=== PATIENT | female | born 1995 | race Native Hawaiian/Other Pacific Islander ===

== ENCOUNTER → 2016-10-05 | Outpatient (CLI) | payer OTHER ==
[~2016-10-05] MED LIST: IBUP600 PO; TAMS0.4C67 PO
[2016-10-05 16:19] LABS: HEMATOCRIT 36.8 % (35.0-46.0); MEAN CELL VOLUME 93.8 FL (80.0-100.0); MEAN CORPUSCULAR HEMOGLOBIN 32.4 PG (27.0-34.0); MEAN CORPUSCULAR HGB CONC 34.6 % (32.0-36.0); PLATELET COUNT 229 TH/MM3 (150-450); RED BLOOD COUNT 3.92 MIL/MM3 (4.00-5.30); RED CELL DISTRIBUTION WIDTH 12.4 % (11.6-17.2); REVIEW FLAG FINAL; WHITE BLOOD COUNT 5.6 TH/MM3 (4.0-11.0)
[2016-10-05 16:32] LABS: ANION GAP 8 MEQ/L (5-15); AST (GOT) 16 U/L (15-37); BICARBONATE 24.3 MEQ/L (21.0-32.0); BLOOD UREA NITROGEN 15 MG/DL (7-18); CHLORIDE 105 MEQ/L (98-107); GLOMERULAR FILTRATION RATE 104 ML/MIN (>89); GLUCOSE,FASTING 78 MG/DL (74-99); POTASSIUM 3.8 MEQ/L (3.5-5.1); SODIUM (NA) 137 MEQ/L (136-145)
[2016-10-05 16:42] LABS: ALKALINE PHOSPHATASE 54 U/L (45-117); ALT (GPT) 14 U/L (10-53); FREE T4 1.06 NG/DL (0.76-1.46); HDL CHOLESTEROL 61.3 MG/DL (40.0-60.0); LDL CHOLESTEROL 94 MG/DL (0-99); TOTAL BILIRUBIN ADULT 0.3 MG/DL (0.2-1.0)
== END ==
LOC: PLAB 13:18
PROVIDERS: ATTEND Family Medicine
DX: K59.09 Other constipation (principal); R14.0 Abdominal distension (gaseous); H81.393 Other peripheral vertigo, bilateral; F41.1 Generalized anxiety disorder; R70.0 Elevated erythrocyte sedimentation rate; R11.0 Nausea
CPT/HCPCS: 80053; 80061; 83516; 84439; 84443; 85027

== ENCOUNTER 2017-03-14 20:45 | Emergency (ER) | payer OTHER ==
[~2017-03-14] VITALS: Ht 152.4 cm; Wt 43.2 kg
[2017-03-14 20:48] VITALS: BP 112/77; PULSE 93; RESP 16; TEMP 98.1
[2017-03-14] MEDS ORDERED: IBUP800T23 PO (21:35)
--- NOTE | 2017-03-14 21:37 | PD ---
HPI Chief Complaint: Edema Time Seen by Provider: 21:26 Travel History International Travel<30 days: No Contact w/Intl Traveler<30days: No Traveled to known affect area: No History of Present Illness HPI 21-year-old female presents emergency department for evaluation of mild bilateral knee swelling times one day. Patient denies injury. She reports only minimal pain. She reports she noticed mild knee swelling today. She denies fever, chills or recent infection. She denies any other joint involvement. Symptom severity is mild. No alleviating factors. Duration one day. PFSH Past Medical History Medical History: Denies Significant Hx Diminished Hearing: No Gastrointestinal Disorders: Yes (IBS) Immunizations Current: Yes Tetanus Vaccination: > 5 Years Influenza Vaccination: No ?: Not LMP: 03-11-17 Past Surgical History Surgical History: No Previous Surgery Social History Alcohol Use: No Tobacco Use: No Substance Use: No Allergies-Medications (Allergen,Severity, Reaction): Coded Allergies: penicillin G (Unverified Allergy, Mild, 03/14/17) Reported Meds & Prescriptions Reported Meds & Active Scripts Active Ibuprofen 800 Mg Tab 800 Mg PO Q6HR PRN Review of Systems Except as stated in HPI: all other systems reviewed are Neg General / Constitutional: No: Fever Eyes: No: Visual changes HENT: No: Headaches Cardiovascular: No: Chest Pain or Discomfort Respiratory: No: Shortness of Breath Gastrointestinal: No: Abdominal Pain Genitourinary: No: Dysuria Skin: No Rash Physical Exam Narrative GENERAL: Well-nourished, well-developed patient. SKIN: Focused skin assessment warm/dry. No rash. HEAD: Normocephalic. EYES: No scleral icterus. No injection or drainage. NECK: Supple, trachea midline. No JVD or lymphadenopathy. CARDIOVASCULAR: Regular rate and rhythm without murmurs, gallops, or rubs. RESPIRATORY: Breath sounds equal bilaterally. No accessory muscle use. GASTROINTESTINAL: Abdomen soft, non-tender, nondistended. MUSCULOSKELETAL: No cyanosis. Mild bilateral knee effusions. Both joints are without warmth or erythema. The knees are nontender. She has no calf tenderness. No pedal edema. 2+ distal pulses. Data Data Last Documented VS Vital Signs Date Time Temp Pulse Resp B/P (MAP) Pulse Ox O2 Delivery O2 Flow Rate FiO2 03/14/17 20:48 98.1 93 16 112/77 (89) Orders Orders Splint Or Brace Apply/Monitor (03/14/17 21:37) MDM Medical Decision Making Medical Screen Exam Complete: Yes Emergency Medical Condition: Yes Differential Diagnosis Knee effusion, osteo-arthritis, rheumatoid arthritis, gouty arthritis, knee strain versus sprain Narrative Course 21-year-old female with mild bilateral knee effusions times one day. Patient denies any injury. Patient denies fever or chills. Patient denies any recent infection. Her physical exam is reassuring. She has no evidence of septic joint. Patient will be treated for mild effusion to the stress and NSAIDs instructed to follow up PCP. Patient verbalizes understanding and agrees to plan Diagnosis Primary Impression: Bilateral knee effusions Referrals: [facility] Departure Forms: Tests/Procedures, Work Release Enter return to work date: Mar 16, 2017 Additional Instructions: Review the Bert wrap's for support. Take the Motrin as directed. Follow-up the primary doctor. Return to the emergency department if he developed new or worsening symptoms. Scripts Ibuprofen (Ibuprofen) 800 Mg Tab 800 MG PO Q6HR Y for PAIN, #30 TAB 0 Refills Prov: Renee Gil 03/14/17 Disposition: 01 DISCHARGE HOME Condition: Stable Renee Gil Mar 14, 2017 21:37
== END 2017-03-14 21:59 | disposition home or self-care (01) ==
LOC: PHEFT 20:45
DX: M25.462 Effusion, left knee (principal); M25.461 Effusion, right knee; K58.9 Irritable bowel syndrome, unspecified
CPT/HCPCS: 99283

== ENCOUNTER 2017-07-08 09:47 | Emergency (ER) | payer SELFPAY ==
[~2017-07-08] VITALS: Ht 152.4 cm; Wt 48.5 kg
[~2017-07-08 09:47] MED LIST changes: +IBUP1TAB7 PO; -IBUP600 PO; -TAMS0.4C67 PO
[2017-07-08 10:10] VITALS: BP 108/62; PULSE 88; RESP 15; TEMP 97.8; O2SAT 99
--- NOTE | 2017-07-08 11:33 | PD ---
HPI Chief Complaint: Cold / Flu Symptoms Time Seen by Provider: 10:54 Travel History International Travel<30 days: No Contact w/Intl Traveler<30days: No Traveled to known affect area: No History of Present Illness HPI This is a 21-year-old female here with left rib pain times one day. She reports pain is reproduced by palpation of the ribs and deep inspiration. She did have a upper respiratory infection with cough several days prior. Symptom severity is mild to moderate. Reproduced by palpation of the ribs and deep inspiration. No alleviating factors. She denies chest pain, palpitations, shortness of breath. PFSH Past Medical History Medical History: Denies Significant Hx Diminished Hearing: No Gastrointestinal Disorders: Yes (IBS) Immunizations Current: Yes ?: Not LMP: 06/18/2017 Social History Alcohol Use: No Tobacco Use: No Substance Use: No Allergies-Medications (Allergen,Severity, Reaction): Coded Allergies: penicillin G (Unverified Allergy, Mild, 07/08/17) Reported Meds & Prescriptions Reported Meds & Active Scripts Active No Active Prescriptions or Reported Medications Review of Systems Except as stated in HPI: all other systems reviewed are Neg General / Constitutional: No: Fever Physical Exam Narrative GENERAL: Alert and well-appearing 21-year-old female SKIN: Warm and dry. HEAD: Normocephalic. EYES: No injection or drainage. NECK: Supple, trachea midline. CARDIOVASCULAR: Regular rate and rhythm without murmurs, gallops, or rubs. Chest wall: + Tenderness to palpation of the left anterior chest wall. No crepitus. RESPIRATORY: Breath sounds equal bilaterally. No accessory muscle use. Equal chest rise. GASTROINTESTINAL: Abdomen soft, non-tender, nondistended. MUSCULOSKELETAL: No cyanosis, or edema. BACK: Nontender without obvious deformity. No CVA tenderness. Data Data Last Documented VS Vital Signs Date Time Temp Pulse Resp B/P (MAP) Pulse Ox O2 Delivery O2 Flow Rate FiO2 07/08/17 10:10 97.8 88 15 108/62 (77) 99 Orders Orders Chest, Single Ap (07/08/17 ) [facility] Medical Decision Making Medical Screen Exam Complete: Yes Emergency Medical Condition: Yes Differential Diagnosis Chest wall strain, costochondritis, rib fracture, pneumothorax Narrative Course 21-year-old female here with nontraumatic left chest wall/rib pain times one day. Patient had recent URI. She was coughing frequently. She has reproducible left anterior rib pain. No palpable fractures. Breath sounds equal bilaterally. Equal chest rise. Chest x-ray: No acute disease X-ray findings discussed with patient and family. She'll be treated for chest wall strain. Return precautions discussed. Patient verbalizes understanding and agrees to plan Diagnosis Primary Impression: Strain of chest wall Qualified Codes: S29.011A - Strain of muscle and tendon of front wall of thorax, initial encounter Referrals: Primary Care Physician Additional Instructions: Take rpro-yed-vmbddyf ibuprofen 600 mg every 6 hours as needed for pain. Follow-up with her primary doctor. Return if he developed new or worsening symptoms. Scripts No Active Prescriptions or Reported Meds Disposition: 01 DISCHARGE HOME Condition: Stable Renee Gil Jul 08, 2017 11:33
--- NOTE | 2017-07-08 11:44 | RADRPT ---
EXAM DATE/TIME: 07/08/2017 11:16 [place] COMPARISON: No previous studies available for comparison. INDICATIONS : Left side chest pain with cough. MEDICAL HISTORY : None. SURGICAL HISTORY : None. ENCOUNTER: Initial ACUITY: 2 days PAIN SCORE: 7/10 LOCATION: Bilateral chest FINDINGS: Single AP view of the chest. The lungs are clear. Cardiomediastinal silhouette within normal limits. No evidence of pleural effusion or pneumothorax. CONCLUSION: No acute cardiopulmonary disease identified. Eagle Mcdonald MD on July 08, 2017 at 11:41 Board Certified Radiologist. This report was verified electronically.
== END 2017-07-08 11:57 | disposition home or self-care (01) ==
LOC: PHEFT 09:47
DX: S29.011A Strain of muscle and tendon of front wall of thorax, initial encounter (principal); R05 Cough; X58.XXXA Exposure to other specified factors, initial encounter
CPT/HCPCS: 71045; 99283

== ENCOUNTER 2017-08-10 15:30 | Emergency (ER) | payer SELFPAY ==
[~2017-08-10] VITALS: Ht 152.4 cm; Wt 41.6 kg
[2017-08-10 15:53] VITALS: BP 118/67; PULSE 122; RESP 18; TEMP 98.9; O2SAT 98
--- NOTE | 2017-08-10 17:21 | PD ---
HPI Chief Complaint: ENT Complaint Time Seen by Provider: 16:29 Travel History International Travel<30 days: No Contact w/Intl Traveler<30days: No Traveled to known affect area: No History of Present Illness HPI 21-year-old female that presents to the ED for evaluation of bilateral ear pain , headache, sore throat. Per patient she's had this for 2 days. No sick contacts. Congestion and mild cough. No history of asthma. No other medical issues. No recent travel. Allergy to penicillin. No urinary or bowel movement issues. Has not seen anybody for this. Per patient she is able to swallow but feels like she is given a gag and she tries not to. She has no taken anything else for this. No other medical issues. PFSH Past Medical History Medical History: Denies Significant Hx Diminished Hearing: No Gastrointestinal Disorders: Yes (IBS) Immunizations Current: Yes ?: Not LMP: 07/23/17 Past Surgical History Surgical History: No Previous Surgery Social History Alcohol Use: No Tobacco Use: No Substance Use: No Allergies-Medications (Allergen,Severity, Reaction): Coded Allergies: penicillin G (Unverified Allergy, Mild, 08/10/17) Reported Meds & Prescriptions Reported Meds & Active Scripts Active Magic Mouthwash Adult Liq (Multi-Ingredient Mouthwash/Gargle) 120 Ml Susp 5 Ml SWISH-SWAL ACHS Each 5mL contains: Nystatin 200,000units, Diphenhydramine 4.25mg, Viscous Lidocaine 10mg, Lebron syrup 0.8 mL Prednisone 20 Mg Tab 20 Mg PO BID 3 Days Azithromycin 250 Mg Tab 250 Mg PO DIRECTED Take 2 tabs (500 mg) on day 1 then 1 tab daily x 4 days. Review of Systems Except as stated in HPI: all other systems reviewed are Neg Physical Exam Narrative GENERAL: Well-nourished, well-developed patient in no apparent distress. SKIN: Warm and dry. HEAD: Atraumatic. Normocephalic. EYES: Pupils equal and round reactive to light and accommodation. No scleral icterus. No injection or drainage. ENT: No nasal bleeding or discharge. Mucous membranes pink and moist. TMs are red and bulging bilaterally but more noticeable on the left.. No mastoid tenderness. Ear canals are intact bilaterally. No lymphadenopathy. Nostril mucosa is red and moist with clear mucus noted. No sinus tenderness to palpation noted. Tonsils are not enlarged or swollen. No ulvua Deviation. Tongue is midline. NECK: Trachea midline. No JVD. No meningeal signs noted CARDIOVASCULAR: Regular rate and rhythm. RESPIRATORY: No accessory muscle use. Clear to auscultation. Breath sounds equal bilaterally. GASTROINTESTINAL: Abdomen soft, non-tender, nondistended. Hepatic and splenic margins not palpable. MUSCULOSKELETAL: Extremities without clubbing, cyanosis, or edema. No obvious deformities. NEUROLOGICAL: Awake and alert. No obvious cranial nerve deficits. Motor grossly within normal limits. Five out of 5 muscle strength in the arms and legs. Normal speech. PSYCHIATRIC: Appropriate mood and affect; insight and judgment normal. Data Data Last Documented VS Vital Signs Date Time Temp Pulse Resp B/P (MAP) Pulse Ox O2 Delivery O2 Flow Rate FiO2 08/10/17 19:51 113 08/10/17 19:40 16 08/10/17 15:53 98.9 118/67 (84) 98 Orders Orders Influenzae A/B Antigen (08/10/17 16:39) Electrocardiogram (08/10/17 ) Basic Metabolic Panel (Bmp) (08/10/17 18:12) Complete Blood Count With Diff (08/10/17 18:12) Iv Access Insert/Monitor (08/10/17 18:12) Sodium Chlor 0.9% 1000 Ml Inj (Ns 1000 M (08/10/17 18:12) Ketorolac Inj (Toradol Inj) (08/10/17 18:15) Lactic Acid Sepsis Protocol (08/10/17 18:16) Azithromycin Inj (Zithromax Inj) (08/10/17 18:30) Sodium Chlor 0.9% 1000 Ml Inj (Ns 1000 M (08/10/17 19:00) Thyroid Stimulating Hormone (08/10/17 19:17) Sodium Chlor 0.9% 1000 Ml Inj (Ns 1000 M (08/10/17 19:30) Lactic Acid Sepsis Protocol (08/10/17 19:23) Ed Discharge Order (08/10/17 19:51) Labs Laboratory Tests Test 08/10/17 18:22 08/10/17 19:12 White Blood Count 7.4 TH/MM3 Red Blood Count 3.99 MIL/MM3 Hemoglobin 12.8 GM/DL Hematocrit 37.2 % Mean Corpuscular Volume 93.3 FL Mean Corpuscular Hemoglobin 32.2 PG Mean Corpuscular Hemoglobin Concent 34.5 % Red Cell Distribution Width 12.3 % Platelet Count 218 TH/MM3 Mean Platelet Volume 8.7 FL Neutrophils (%) (Auto) 72.9 % Lymphocytes (%) (Auto) 12.1 % Monocytes (%) (Auto) 11.3 % Eosinophils (%) (Auto) 3.0 % Basophils (%) (Auto) 0.7 % Neutrophils # (Auto) 5.4 TH/MM3 Lymphocytes # (Auto) 0.9 TH/MM3 Monocytes # (Auto) 0.8 TH/MM3 Eosinophils # (Auto) 0.2 TH/MM3 Basophils # (Auto) 0.1 TH/MM3 CBC Comment DIFF FINAL Differential Comment Blood Urea Nitrogen 10 MG/DL Creatinine 0.60 MG/DL Random Glucose 76 MG/DL Calcium Level 8.7 MG/DL Sodium Level 138 MEQ/L Potassium Level 3.4 MEQ/L Chloride Level 105 MEQ/L Carbon Dioxide Level 22.7 MEQ/L Anion Gap 10 MEQ/L Estimat Glomerular Filtration Rate 125 ML/MIN Thyroid Stimulating Hormone 3rd Gen 0.269 uIU/ML Lactic Acid Level 1.1 mmol/L MDM Medical Decision Making Medical Screen Exam Complete: Yes Emergency Medical Condition: Yes Medical Record Reviewed: Yes Interpretation(s) CBC & BMP Diagram 08/10/17 18:22 Calcium Level 8.7 EKG shows sinus tachy in the 130s. lactic acid WNL Differential Diagnosis Influenza versus pharyngitis versus otitis media versus otitis externa versus sinusitis Narrative Course 21-year-old female that presents to the ED for evaluation of cold like symptoms. Patient was properly examined and was found to have signs and symptoms consistent appears to be possible influenza. Labs were ordered. Influenza test was negative. Patient was reassured. Patient still tachycardic in the 120s and 130s. Within EKG and it shows sinus tach in the 130s. Likely from dehydration. IV was established and lab work was ordered. IV and labs were essentially unremarkable. Patient was given 1.5 L with improvement of tachycardia with improvement to the 116. Patient was given Tylenol for pain and the first dose of azithromycin. Patient was given prescription for azithromycin, Magic mouthwash and prednisone. Told to follow closely with PCP. See ED worsening symptoms. All questions were answered to the best of my ability. Diagnosis Primary Impression: Pharyngitis, acute Qualified Codes: J02.9 - Acute pharyngitis, unspecified Patient Instructions: General Instructions Departure Forms: Tests/Procedures, Work Release Enter return to work date: Aug 12, 2017 Additional Instructions: Motrin and Tylenol for pain and fever. You can use gxfc-jmb-gvfoilt antihistamine as well as well as Mucinex as needed for runny nose and congestion. Cough drops for cough as needed. Drink plenty of fluids. Follow-up with PCP. See ED for worsening symptoms. Med/Other Pt SpecificInfo: Prescription(s) given Scripts Gopwenwp-Npxanrorenhlicy-Spygtpwlz Liq (Magic Mouthwash Adult Liq) 120 Ml Susp 5 ML SWISH-SWAL ACHS for Mouth sores, #120 ML 0 Refills Each 5mL contains: Nystatin 200,000units, Diphenhydramine 4.25mg, Viscous Lidocaine 10mg, Lebron syrup 0.8 mL Prov: Blayne Gregg MD 08/10/17 Prednisone (Prednisone) 20 Mg Tab 20 MG PO BID for 3 Days, #6 TAB 0 Refills Prov: Blayne Gregg MD 08/10/17 Azithromycin (Azithromycin) 250 Mg Tab 250 MG PO DIRECTED for Infection, #6 TAB 0 Refills Take 2 tabs (500 mg) on day 1 then 1 tab daily x 4 days. Prov: Blayne Gregg MD 08/10/17 Disposition: 01 DISCHARGE HOME Condition: Stable Magno Vasquez Aug 10, 2017 17:21
[2017-08-10] MEDS ORDERED: MAGICADU2 SWISH-SWAL (18:08)
[2017-08-10] MEDS ORDERED: PRED20 PO (18:08)
[2017-08-10] MEDS ORDERED: AZIT250T3 PO (18:08)
[2017-08-10] MEDS ORDERED: SODIUM CHLOR 0.9% 1000 ML INJ 1,000 ML IV SCH (18:12)
[2017-08-10] MEDS ORDERED: KETOROLAC TROMETHAMINE 30 MG/ML (IVP) VIAL IVP ONE (18:15)
[2017-08-10] MEDS ORDERED: AZITHROMYCIN INJ 500 MG in SODIUM CHLOR 0.9% 250 ML INJ 250 ML IV ONE (18:30)
[2017-08-10 18:41] LABS: AUTOMATED NEUTROPHIL # 5.4 TH/MM3 (1.8-7.7); BASOPHIL # 0.1 TH/MM3 (0-0.2); BASOPHIL % 0.7 % (0.0-2.0); EOSINOPHIL # 0.2 TH/MM3 (0-0.4); HEMATOCRIT 37.2 % (35.0-46.0); HEMOGLOBIN 12.8 GM/DL (11.6-15.3); LYMPH % 12.1 % (9.0-44.0); LYMPHOCYTE # 0.9 TH/MM3 (1.0-4.8); MEAN CELL VOLUME 93.3 FL (80.0-100.0); MEAN CORPUSCULAR HEMOGLOBIN 32.2 PG (27.0-34.0); MEAN CORPUSCULAR HGB CONC 34.5 % (32.0-36.0); MEAN PLATELET VOLUME 8.7 FL (7.0-11.0); MONO % 11.3 % (0.0-8.0); MONOCYTE # 0.8 TH/MM3 (0-0.9); NEUT % 72.9 % (16.0-70.0); PLATELET COUNT 218 TH/MM3 (150-450); RED BLOOD COUNT 3.99 MIL/MM3 (4.00-5.30); RED CELL DISTRIBUTION WIDTH 12.3 % (11.6-17.2); WHITE BLOOD COUNT 7.4 TH/MM3 (4.0-11.0)
[2017-08-10 18:53] LABS: CALCIUM 8.7 MG/DL (8.5-10.1)
[2017-08-10 18:54] LABS: BICARBONATE 22.7 MEQ/L (21.0-32.0)
[2017-08-10 18:57] LABS: CREATININE 0.6 MG/DL (0.50-1.00)
[2017-08-10] MEDS ORDERED: SODIUM CHLOR 0.9% 1000 ML INJ 1,000 ML IV ONE ×2 (19:00→19:30)
[2017-08-10 19:40] VITALS: RESP 16
[2017-08-10 19:51] VITALS: PULSE 113
--- NOTE | 2017-08-11 11:26 | EKG ---
Date Performed: 08/10/2017 Time Performed: 18:02:18 PTAGE: 21 years EKG: SINUS TACHYCARDIA NONSPECIFIC T-WAVE ABNORMALITY ABNORMAL RHYTHM ECG NO PREVIOUS TRACING DOCTOR: Bimal Randolph Interpretating Date/Time 08/11/2017 11:23:43
== END 2017-08-10 20:06 | disposition home or self-care (01) ==
LOC: PHEFT 15:30
DX: J02.9 Acute pharyngitis, unspecified (principal); R00.0 Tachycardia, unspecified; R94.31 Abnormal electrocardiogram [ECG] [EKG]
CPT/HCPCS: 80048; 83605; 84443; 85025; 87804; 93005; 96365; 96375; 99284; J0456; J1885; J7030; J7050